=== PATIENT | female | born 1950 | race Caucasian/White ===

== ENCOUNTER 2020-03-05 23:36 | Emergency (ER) | payer OTHER, MEDICAID ==
[~2020-03-05] VITALS: Ht 152.4 cm; Wt 72.6 kg
[2020-03-05] MEDS ORDERED: methylPREDNISolone SOD SUCC 125 MG/2 ML VL ONE (23:40)
[2020-03-05] MEDS ORDERED: methylPREDNISolone SOD SUCC 125 MG/2 ML VL IV ONE (23:45)
[2020-03-05] MEDS ORDERED: IPRATROPIUM BROM 0.5 MG/2.5ML INH SOL NEB ONE (23:45)
[2020-03-05] MEDS ORDERED: ALBUTEROL SULF 2.5 MG/0.5ML(0.5%) NEB SOLN NEB ONE (23:45)
[2020-03-06 00:01] LABS: Basophils # (auto) 0.1 10 ^3/uL (0-0.2); Basophils % (auto) 1.1 % (0.0-2.0); Eosinophils # (auto) 0.4 10 ^3/uL (0-0.8); Eosinophils % (auto) 6.7 % (0.0-7.0); Hematocrit 41.6 % (36.0-46.0); Hemoglobin 13.8 g/dL (12.2-16.2); Lymphocytes # (auto) 2.3 10 ^3/uL (0.4-5.4); Lymphocytes % (auto) 35.2 % (10.0-50.0); Mean Corpuscular Hemoglobin 31.4 pg (28.0-32.0); Mean Corpuscular Hgb Conc. 33.2 g/dL (32.0-36.0); Mean Corpuscular Volume 94.5 fL (80.0-100.0); Monocytes # (auto) 0.6 10 ^3/uL (0-1.3); Monocytes % (auto) 9.4 % (0.0-12.0); Neutrophils # (auto) 3.1 10 ^3/uL (1.6-8.6); Neutrophils % (auto) 47.6 % (37.0-80.0); Nucleated Red Blood Cells % 0.1 %; Platelet Count (auto) 182 10^3/uL (140-450); Red Cell Distribution Width 13.6 % (11.8-14.3); White Blood Cell 6.5 10^3/uL (4.4-10.8)
[2020-03-06 00:18] LABS: Albumin 3.6 g/dL (3.4-5.0); Anion Gap 7 (5-15); BUN/Creatinine Ratio 13.3; Blood Urea Nitrogen 16 mg/dL (7-18); Calcium 8.9 mg/dL (8.5-10.1); Carbon Dioxide 27 mmol/L (21-32); Chloride 107 mmol/L (98-107); GFR African American 57 mL/min; GFR Non-African American 47 mL/min; Glucose 86 mg/dL (74-106); Magnesium 2.3 mg/dL (1.6-2.6); Potassium 4.4 mmol/L (3.5-5.1); Sodium 141 mmol/L (136-145)
[2020-03-06 00:19] LABS: Partial Thromboplastin Time 26.5 sec (23.64-32.05)
[2020-03-06 00:23] LABS: Alanine Aminotransferase 21 U/L (13-56); Alkaline Phosphatase 94 U/L (45-117); Aspartate Aminotransferase 20 U/L (15-37); Bilirubin, Total 0.3 mg/dL (0.2-1.0); Total Protein 7.3 g/dL (6.4-8.2)
[2020-03-06] MEDS ORDERED: SODIUM CHLORIDE 0.9% 1,000 ML IV ONE (03:30)
[2020-03-06] MEDS ORDERED: methylPREDNISolone SOD SUCC 125 MG/2 ML VL IV ONE (06:00)
[2020-03-06] MEDS ORDERED: ALBUTEROL SULF 2.5 MG/0.5ML(0.5%) NEB SOLN NEB ONE ×2 (06:45→08:30)
[2020-03-06] MEDS ORDERED: IPRATROPIUM BROM 0.5 MG/2.5ML INH SOL NEB ONE ×2 (06:45→08:30)
[2020-03-06 07:25] VITALS: BP 138/63
[2020-03-06] MEDS ORDERED: levoFLOXacin 500 MG TAB PO ONE (08:30)
== END 2020-03-06 09:00 | disposition home or self-care (01) ==
LOC: ER 23:38
DX: J45.901 Unspecified asthma with (acute) exacerbation (principal); E78.5 Hyperlipidemia, unspecified; Z20.828 Contact with and (suspected) exposure to other viral communicable diseases
CPT/HCPCS: 36415; 71045; 80053; 83735; 83880; 84484; 85025; 85379; 85610; 85730; 96374; 96376; 99285; J2930; J7030; J7644

== ENCOUNTER → 2020-03-23 | Emergency (ER) | payer OTHER, MEDICAID ==
[~2020-03-23] VITALS: Ht 152.4 cm; Wt 68.9 kg
[~2020-03-23] MED LIST: ALBUTEROL SULF 2.5 MG/0.5ML(0.5%) NEB SOLN NEB ONE; IPRATROPIUM BROM 0.5 MG/2.5ML INH SOL NEB ONE; methylPREDNISolone SOD SUCC 125 MG/2 ML VL IV ONE
[2020-03-23 21:16] VITALS: BP 186/97
[2020-03-23 22:32] LABS: Basophils # (auto) 0 10 ^3/uL (0-0.2); Basophils % (auto) 0.8 % (0.0-2.0); Eosinophils # (auto) 0.6 10 ^3/uL (0-0.8); Eosinophils % (auto) 10.6 % (0.0-7.0); Hematocrit 39.1 % (36.0-46.0); Mean Corpuscular Hemoglobin 31.9 pg (28.0-32.0); Mean Corpuscular Hgb Conc. 33.3 g/dL (32.0-36.0); Mean Corpuscular Volume 95.7 fL (80.0-100.0); Monocytes # (auto) 0.4 10 ^3/uL (0-1.3); Monocytes % (auto) 7.5 % (0.0-12.0); Neutrophils # (auto) 2.7 10 ^3/uL (1.6-8.6); Neutrophils % (auto) 46.1 % (37.0-80.0); Platelet Count (auto) 167 10^3/uL (140-450); Red Blood Cells 4.08 10^6/uL (4.0-5.20); Red Cell Distribution Width 13.7 % (11.8-14.3); White Blood Cell 5.8 10^3/uL (4.4-10.8)
[2020-03-23 22:48] LABS: INR 1.01 (0.9-1.15); Partial Thromboplastin Time 26.2 sec (23.64-32.05)
[2020-03-23 22:52] LABS: Albumin 3.7 g/dL (3.4-5.0); Anion Gap 3 (5-15); Blood Urea Nitrogen 23 mg/dL (7-18); Calcium 8.5 mg/dL (8.5-10.1); Carbon Dioxide 29 mmol/L (21-32); Chloride 111 mmol/L (98-107); Glucose 72 mg/dL (74-106); Magnesium 2.4 mg/dL (1.6-2.6); Potassium 3.8 mmol/L (3.5-5.1); Sodium 143 mmol/L (136-145)
[2020-03-23 22:54] LABS: Alanine Aminotransferase 25 U/L (13-56); Aspartate Aminotransferase 25 U/L (15-37); BUN/Creatinine Ratio 18.9; GFR African American 56 mL/min; GFR Non-African American 46 mL/min
[2020-03-23 22:59] LABS: Alkaline Phosphatase 85 U/L (45-117); Bilirubin, Total 0.4 mg/dL (0.2-1.0)
== END | disposition left against medical advice (07) ==
LOC: ER 21:12
DX: R06.02 Shortness of breath (principal); Z53.21 Procedure and treatment not carried out due to patient leaving prior to being seen by health care provider
CPT/HCPCS: 36415; 71045; 80053; 83735; 83880; 84484; 85025; 85379; 85610; 85730; 94640; 94644; J2930; J7644; 93005

== ENCOUNTER 2021-05-08 08:46 | Emergency (ER) | payer OTHER, MEDICAID ==
[~2021-05-08] VITALS: Ht 165.1 cm; Wt 77.1 kg
[2021-05-08 09:34] LABS: Hematocrit 45.3 % (36.0-46.0); Hemoglobin 15.2 g/dL (12.2-16.2); Mean Corpuscular Hemoglobin 31.3 pg (28.0-32.0); Mean Corpuscular Hgb Conc. 33.6 g/dL (32.0-36.0); Mean Corpuscular Volume 93.4 fL (80.0-100.0); Red Blood Cells 4.85 10^6/uL (4.0-5.20); Red Cell Distribution Width 13.1 % (11.8-14.3); White Blood Cell 17.7 10^3/uL (4.4-10.8)
[2021-05-08] MEDS ORDERED: SODIUM CHLORIDE 0.9% 1,000 ML IV ONE (09:45)
[2021-05-08] MEDS ORDERED: PROCHLORPERAZINE EDISYLATE 5 MG/ML 2ML VIAL IV ONE (09:45)
[2021-05-08 09:46] LABS: Basophils % (manual) 0 (0.0-2.0); Blast Cells 0; Metamyelocytes % 0; Myelocytes % 0; Promyelocytes % 0; Reactive Lymphocytes 0
[2021-05-08 09:55] LABS: Albumin 4.2 g/dL (3.4-5.0); Anion Gap 8 (5-15); Blood Urea Nitrogen 27 mg/dL (7-18); Calcium 8.9 mg/dL (8.5-10.1); Carbon Dioxide 22 mmol/L (21-32); Chloride 112 mmol/L (98-107); Glucose 168 mg/dL (74-106); Sodium 142 mmol/L (136-145)
[2021-05-08] MEDS ORDERED: SODIUM CHLORIDE 0.9% 1,000 ML IVB ONE (10:00)
[2021-05-08] MEDS ORDERED: MORPHINE SULFATE INJECTION 2 MG/2 ML SYRG IV ONE (10:00)
[2021-05-08 10:01] LABS: Alanine Aminotransferase 39 U/L (13-56); Alkaline Phosphatase 95 U/L (45-117); Aspartate Aminotransferase 29 U/L (15-37); BUN/Creatinine Ratio 20.3; Bilirubin, Total 0.8 mg/dL (0.2-1.0); GFR African American 51 mL/min; GFR Non-African American 42 mL/min; Total Protein 8.5 g/dL (6.4-8.2)
[2021-05-08 10:17] LABS: Magnesium 2.3 mg/dL (1.6-2.6)
[2021-05-08 10:41] LABS: Band Neutrophils % (manual) 8; Eosinophils % (manual) 1 (0-7); Lymphocytes % (manual) 3 (10.0-50.0); Monocytes % (manual) 6 (0-12)
[2021-05-08 13:52] LABS: Urine Bacteria FEW /hpf (None Seen); Urine Blood Negative /uL (Negative); Urine Mucus FEW (None Seen); Urine WBC 2 /hpf (0 - 5)
[2021-05-08] MEDS ORDERED: cefTRIAXone 1GM/50ML D5W 50 ML IV ONE (15:00)
[2021-05-08 16:05] VITALS: BP 129/62
== END 2021-05-08 16:44 | disposition home or self-care (01) ==
LOC: EDBD 08:46 → ER 08:46
DX: A05.9 Bacterial foodborne intoxication, unspecified (principal); N39.0 Urinary tract infection, site not specified; J18.9 Pneumonia, unspecified organism; E11.21 Type 2 diabetes mellitus with diabetic nephropathy; J45.909 Unspecified asthma, uncomplicated; E78.5 Hyperlipidemia, unspecified; Z88.5 Allergy status to narcotic agent; Z20.822 Contact with and (suspected) exposure to COVID-19; Z88.8 Allergy status to other drugs, medicaments and biological substances
CPT/HCPCS: 36415; 71045; 74176; 80053; 81001; 83690; 83735; 84443; 84484; 85007; 85027; 87426; 93005; 96361; 96365; 96375; 99285; J0696; J0780; J2270; J7030

== ENCOUNTER 2021-07-26 15:39 | Emergency (ER) | payer OTHER, MEDICAID ==
[~2021-07-26] VITALS: Ht 154.9 cm; Wt 77.1 kg
[2021-07-26] MEDS ORDERED: IPRATROPIUM BROM 0.5 MG/2.5ML INH SOL NEB ONE (16:15)
[2021-07-26] MEDS ORDERED: ALBUTEROL SULF 2.5 MG/0.5ML(0.5%) NEB SOLN NEB ONE (16:15)
[2021-07-26] MEDS ORDERED: methylPREDNISolone SOD SUCC 125 MG/2 ML VL IV ONE (16:15)
[2021-07-26 16:37] LABS: Basophils # (auto) 0.1 10 ^3/uL (0-0.2); Eosinophils # (auto) 0.8 10 ^3/uL (0-0.8); Eosinophils % (auto) 13.3 % (0.0-7.0); Hemoglobin 12.5 g/dL (12.2-16.2); Lymphocytes # (auto) 1.6 10 ^3/uL (0.4-5.4); Lymphocytes % (auto) 26.1 % (10.0-50.0); Mean Corpuscular Hemoglobin 31.5 pg (28.0-32.0); Mean Corpuscular Hgb Conc. 33.7 g/dL (32.0-36.0); Mean Corpuscular Volume 93.4 fL (80.0-100.0); Monocytes # (auto) 0.5 10 ^3/uL (0-1.3); Monocytes % (auto) 8.4 % (0.0-12.0); Neutrophils # (auto) 3.1 10 ^3/uL (1.6-8.6); Neutrophils % (auto) 51.2 % (37.0-80.0); Red Blood Cells 3.96 10^6/uL (4.0-5.20); Red Cell Distribution Width 13.8 % (11.8-14.3); White Blood Cell 6.1 10^3/uL (4.4-10.8)
[2021-07-26 16:51] LABS: Albumin 3.6 g/dL (3.4-5.0); Calcium 8.6 mg/dL (8.5-10.1); Potassium 4.1 mmol/L (3.5-5.1)
[2021-07-26 16:57] LABS: Bilirubin, Total 0.4 mg/dL (0.2-1.0); Total Protein 6.7 g/dL (6.4-8.2)
[2021-07-26 21:11] VITALS: BP 131/97
== END 2021-07-26 21:15 | disposition home or self-care (01) ==
LOC: ER 15:39
DX: J45.901 Unspecified asthma with (acute) exacerbation (principal); J45.909 Unspecified asthma, uncomplicated; Z20.822 Contact with and (suspected) exposure to COVID-19
CPT/HCPCS: 36415; 71045; 80053; 84484; 85025; 87426; 93005

== ENCOUNTER 2022-01-03 15:19 | Emergency (ER) | payer OTHER, MEDICAID ==
[~2022-01-03] VITALS: Ht 152.4 cm; Wt 77.1 kg
[2022-01-03] MEDS ORDERED: TERBUTALINE SULFATE 1 MG/ML 1ML VIAL SC ONE (15:30)
[2022-01-03] MEDS ORDERED: ALBUTEROL SULF 2.5 MG/0.5ML(0.5%) NEB SOLN NEB ONE (15:30)
[2022-01-03] MEDS ORDERED: methylPREDNISolone SOD SUCC 125 MG/2 ML VL IV ONE (15:30)
[2022-01-03] MEDS ORDERED: IPRATROPIUM BROM 0.5 MG/2.5ML INH SOL NEB ONE (15:30)
[2022-01-03 15:45] LABS: Basophils # (auto) 0 10 ^3/uL (0-0.2); Basophils % (auto) 0.7 % (0.0-2.0); Eosinophils # (auto) 0.8 10 ^3/uL (0-0.8); Eosinophils % (auto) 10.6 % (0.0-7.0); Hematocrit 37.4 % (36.0-46.0); Hemoglobin 12.9 g/dL (12.2-16.2); Lymphocytes # (auto) 1.8 10 ^3/uL (0.4-5.4); Lymphocytes % (auto) 23.6 % (10.0-50.0); Mean Corpuscular Hgb Conc. 34.4 g/dL (32.0-36.0); Monocytes # (auto) 0.6 10 ^3/uL (0-1.3); Monocytes % (auto) 7.8 % (0.0-12.0); Neutrophils # (auto) 4.3 10 ^3/uL (1.6-8.6); Neutrophils % (auto) 57.3 % (37.0-80.0); Nucleated Red Blood Cells % 0.1 %; Red Blood Cells 4.03 10^6/uL (4.0-5.20); Red Cell Distribution Width 13.7 % (11.8-14.3); White Blood Cell 7.5 10^3/uL (4.4-10.8)
[2022-01-03 16:02] LABS: Albumin 3.6 g/dL (3.4-5.0); Calcium 8.8 mg/dL (8.5-10.1); Potassium 3.8 mmol/L (3.5-5.1)
[2022-01-03] MEDS: MAGNESIUM SULFATE 1GM/100ML 100 ML IV SCH ×2 (16:02→16:55)
[2022-01-03 16:05] LABS: BUN/Creatinine Ratio 12.5; Bilirubin, Total 0.4 mg/dL (0.2-1.0); Total Protein 6.8 g/dL (6.4-8.2)
[2022-01-03 18:25] VITALS: BP 153/74
[2022-01-03] MEDS ORDERED: PRED20TA2 PO (18:54)
[2022-01-03] MEDS ORDERED: ALBUAER3 IN (18:54)
[2022-01-03] MEDS ORDERED: AZIT250T9 PO (18:54)
== END 2022-01-03 18:45 | disposition home or self-care (01) ==
LOC: ER 15:19
DX: J45.909 Unspecified asthma, uncomplicated (principal); E78.5 Hyperlipidemia, unspecified
CPT/HCPCS: 36415; 71045; 80053; 83880; 84484; 85025; 94640; 96365; 96366; 96372; 96375; 99284; J2930; J3105; J3475; J7644

== ENCOUNTER 2025-09-17 12:57 | Inpatient (IN) | payer MEDICARE, MEDICAID ==
[~2025-09-17] VITALS: Ht 152.4 cm; Wt 82.9 kg
[~2025-09-17 12:57] MED LIST changes: +ALBUAER3 IN; -ALBUTEROL SULF 2.5 MG/0.5ML(0.5%) NEB SOLN NEB ONE; +AZIT-43 PO; -IPRATROPIUM BROM 0.5 MG/2.5ML INH SOL NEB ONE; +PRED20TA2 PO; -methylPREDNISolone SOD SUCC 125 MG/2 ML VL IV ONE
--- NOTE | 2025-09-17 13:26 | ED.PDOC ---
SOB-HPI HPI Comments This is a 74 year old female presenting to the ED with chief complaint of SOB. Patient reports that she has been experiencing SOB for the past few days. Patient relays that she was recently placed on Z-Andrea on 09/12, but after finishing it, she has had no relief. Patient denies any sick contacts, chest pain, fever, chills, or N/V. 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 all DISTRI[employer] SUPERVISOR Hx Family History Family History: Reviewed,noncontributory to illness Social History Smoker: Non-Smoker Alcohol: Denies ETOH Use Drugs: Denies Drug Use Lives In: Home Constitutional: denies: chills, diaphoresis, fatigue, fever, malaise, sweats, weakness, others EENTM: denies: blurred vision, double vision, ear bleeding, ear discharge, ear drainage, ear pain, ear ringing, eye pain, eye redness, hearing loss, mouth pain, mouth swelling, nasal discharge, nose bleeding, nose congestion, nose pain, photophobia, tearing, throat pain, throat swelling, voice changes, others Respiratory: reports: shortness of breath; denies: cough, hemoptysis, orthopnea, SOB at rest, SOB with excertion, stridor, wheezing, others Cardiovascular: denies: chest pain, dizzy spells, diaphoresis, Dyspnea on exertion, edema, irregular heart beat, left arm pain, lightheadedness, palpitations, PND, syncope, others Gastrointestinal: denies: abdomen distended, abdominal pain, blood streaked bowels, constipated, diarrhea, dysphagia, difficulty swallowing, hematemesis, melena, nausea, poor appetite, poor fluid intake, rectal bleeding, rectal pain, vomiting, others Genitourinary: denies: abnormal vagina bleeding, burning, dyspareunia, dysuria, flank pain, frequency, hematuria, incontinence, pain, , vagina discharge, urgency, others Neurological: denies: dizziness, fainting, headache, left sided numbness, left sided weakness, numbness, paresthesia, pre-existing deficit, right sided nu mbness, right sided weakness, seizure, speech problems, tingling, tremors, weakness, others Musculoskeletal: denies: back pain, gout, joint pain, joint swelling, muscle pain, muscle stiffness, neck pain, others Integumetry: denies: bruises, change in color, change in hair/nails, dryness, laceration, lesions, lumps, rash, wounds, others Allergic/Immunocompromised: denies: Difficulty Healing, Frequent Infections, Hives, Itching, others Hematologic/Lymphatic: denies: anemia, blood clots, easy bleeding, easy bruising, swollen glands, others Endocrine: denies: excessive hunger, excessive sweating, excessive thirst, excessive urination, flushing, intolerance to cold, intolerance to heat, unexplained weight gain, unexplained weight loss, others Psychiatric: denies: anxiety, bipolar disorder, depression, hopeless, panic disorder, schizophrenia, sleepless, suicidal, others All Other Systems: Reviewed and Negative Physical Exam General Appearance: Moderate Distress, Normal HEENT: Normal ENT Inspection, Pharynx Normal, TMs Normal Neck: Full Range of Motion, Non-Tender, Normal, Normal Inspection Respiratory: Chest Non-Tender, Lungs Clear, No Accessory Muscle Use, No Respiratory Distress, Normal Breath Sounds Cardiovascular: No Edema, No JVD, No Murmur, No Gallop, Normal Peripheral Pulses, Regular Rate/Rhythm Breast Exam: Deferred Gastrointestinal: No Organomegaly, Non Tender, No Pulsatile Mass, Normal Bowel Sounds, Soft Genitalia: Deferred Pelvic: Deferred Rectal: Deferred Extremities: No calf tenderness, Normal capillary refill, Normal inspection, Normal range of motion, Non-tender, No pedal edema Musculoskeletal : Apperance: Normal Neurologic: Alert, geographic area intelligence officer II-XII nml as Tested, No Motor Deficits, Normal Affect, Normal Mood, No Sensory Deficits Cerebellar Function: Normal Reflexes: Normal Skin: Dry, Normal Color, Warm Peripheral Pulses: 3+ Radial (R), 3+ Radial (L) Lymphatic: No Adenopathy EKG EKG : Pulse Rate (adult): 89 Cardiac Rhythm: NSR Was a procedure done? Was a procedure done?: No Differential Dx Differential Diagnosis: Anxiety, Asthma, Bronchitis X-Ray, Labs, Meds, VS Vital Signs Date Time Temp Pulse Resp B/P (MAP) Pulse Ox O2 Delivery O2 Flow Rate FiO2 09/17/25 13:26 89 09/17/25 13:15 89 09/17/25 13:04 24 97 Room Air* 0 21 09/17/25 12:59 97.9 97 24 130/95 97 97.9 Lab Test 09/17/25 13:22 Range/Units White Blood Count 8.5 4.4-10.8 10^3/uL Red Blood Count 4.30 4.0-5.20 10^6/uL Hemoglobin 13.7 12.2-16.2 g/dL Hematocrit 40.7 36.0-46.0 % Mean Corpuscular Volume 94.8 80.0-100.0 fL Mean Corpuscular Hemoglobin 32.0 28.0-32.0 pg Mean Corpuscular Hemoglobin Concent 33.7 32.0-36.0 g/dL Red Cell Distribution Width 13.0 11.8-14.3 % Platelet Count 198 140-450 10^3/uL Mean Platelet Volume 8.7 6.9-10.8 fL Neutrophils (%) (Auto) 59.2 37.0-80.0 % Lymphocytes (%) (Auto) 28.8 10.0-50.0 % Monocytes (%) (Auto) 9.2 0.0-12.0 % Eosinophils (%) (Auto) 2.6 0.0-7.0 % Basophils (%) (Auto) 0.2 0.0-2.0 % Neutrophils # (Auto) 5.0 1.6-8.6 10 ^3/uL Lymphocytes # (Auto) 2.4 0.4-5.4 10 ^3/uL Monocytes # (Auto) 0.8 0-1.3 10 ^3/uL Eosinophils # (Auto) 0.2 0-0.8 10 ^3/uL Basophils # (Auto) 0 0-0.2 10 ^3/uL Nucleated Red Blood Cells 0.1 % Sodium Level 144 136-145 mmol/L Potassium Level 3.4 L 3.5-5.1 mmol/L Chloride Level 109 H 98-107 mmol/L Carbon Dioxide Level 24 20-31 mmol/L Anion Gap 11 5-15 Blood Urea Nitrogen 13 9-23 mg/dL Creatinine 1.21 H 0.550-1.02 mg/dL Glomerular Filtration Rate Calc 47 >90 mL/min BUN/Creatinine Ratio 10.7 10.0-20.0 Serum Glucose 74 74-106 mg/dL Lactic Acid Level Pending Calcium Level 9.0 8.7-10.4 mg/dL Total Bilirubin 0.7 0.2-1.0 mg/dL Aspartate Amino Transferase (AST) 17 13-40 U/L Alanine Aminotransferase (ALT) 22 7-40 U/L Alkaline Phosphatase 59 46-116 U/L Troponin I High Sensitivity 9 </=34 ng/L Total Protein 6.7 5.7-8.2 g/dL Albumin 4.4 3.2-4.8 g/dL Patient alert. Came in because of shortness a breath. Vitals stable. Answering questions. Possible pneumonia. Possible sepsis. Establish intravenous access. Was given Rocephin. Was given azithromycin. Explained to the patient. Continue monitoring. Time of 1ST Reevaluation: 14:24 Reevaluation 1ST: Unchanged Patient Education/Counseling: Diagnosis, Treatment Family Education/Counseling: No Family Present SEPSIS Sepsis Screen Date sepsis recognized/suspect: Sep 17, 2025 Time Sepsis recognized/suspect: 1303 Recent Procedure: No On Antibiotic Therapy: Yes Respiratory Rate >20: Yes Heart Rate >90: Yes Temp<36 C (96.8 F) or >38.3 C: No SBP <90 or MAP <65 mmHG: No New Acute Mental Status Change: No Is the patient on CPAP, BIPAP,: No Physician Orders Urinalysis (09/17/25 13:05) Chest Two Views Routine (09/17/25 13:05) Electrocardigram (09/17/25 13:05) Blood Culture (09/17/25 13:05) Lactic Acid W/ Reflex Order (09/17/25 13:05) Azithromycin 500mg/250ml (Zithromax 500m (09/17/25 13:30) Sodium Chloride 0.9% (09/17/25 13:30) Sodium Chloride 0.9% (09/17/25 13:30) Vital Signs Date Time Temp Pulse Resp B/P (MAP) Pulse Ox O2 Delivery O2 Flow Rate FiO2 09/17/25 13:26 89 09/17/25 13:15 89 09/17/25 13:04 24 97 Room Air* 0 21 09/17/25 12:59 97.9 97 24 130/95 97 97.9 Laboratory Tests Test 09/17/25 13:22 Lactic Acid Level Pending White Blood Count 8.5 10^3/uL (4.4-10.8) Departure 1 Departure Time of Disposition: 14:10 Impression: Primary Impression: Left lower lobe pneumonia Qualified Codes: J18.9 - Pneumonia, unspecified organism Disposition: ADMITTED INPATIENT Admit to: Med Surg Condition: Guarded Critical Care Note Critical Care Time?: No Stability Stability form required: No Heart Score Heart Score: Heart Score Response (Comments) Value History N/A 0 EKG N/A 0 Age N/A 0 Risk Factors N/A 0 Troponin N/A 0 Total 0 I personally scribed for SUSAN SINCLAIR MD ([email or web address]) on 09/17/25 at 13:26. Electronically submitted by Nick Anderson ([email or web address]). SUSAN SINCLAIR MD Sep 17, 2025 13:26
[2025-09-17] MEDS: AZITHROMYCIN 500MG/250ML 250 ML IV ONE (13:30)
[2025-09-17 13:55] LABS: Hematocrit 40.7 % (36.0-46.0); Hemoglobin 13.7 g/dL (12.2-16.2); Mean Corpuscular Hemoglobin 32.0 pg (28.0-32.0); Mean Corpuscular Volume 94.8 fL (80.0-100.0); Nucleated Red Blood Cells % 0.1 %
[2025-09-17 14:06] LABS: Alanine Aminotransferase 22 U/L (7-40); Albumin 4.4 g/dL (3.2-4.8); Alkaline Phosphatase 59 U/L (46-116); Anion Gap 11 (5-15); BUN/Creatinine Ratio 10.7 (10.0-20.0); Bilirubin, Total 0.7 mg/dL (0.2-1.0); Blood Urea Nitrogen 13 mg/dL (9-23); Calcium 9.0 mg/dL (8.7-10.4); Carbon Dioxide 24 mmol/L (20-31); Chloride 109 mmol/L (98-107); Glucose 74 mg/dL (74-106); Potassium 3.4 mmol/L (3.5-5.1); Sodium 144 mmol/L (136-145); Total Protein 6.7 g/dL (5.7-8.2)
[2025-09-17 14:14] LABS: Lactic Acid w/Reflex 2.2 mmol/L (0.4-2.0)
--- NOTE | 2025-09-17 14:22 | DVH ---
CHEST RADIOGRAPH INDICATION: sob TECHNIQUE: Frontal and lateral view of the chest was obtained COMPARISON: CT CHEST WO on DOS: 07/07/25, XR CHEST 2 VIEW on DOS: 06/23/25, CHEST PORTABLE on DOS: 01/03/22, CXRP on DOS: 01/03/22, CHEST PORTABLE on DOS: 07/26/21 FINDINGS: Lines and Tubes: None Lungs: Right perihilar opacity may reflect atelectasis or mild pneumonia. Pleura: No effusion. No pneumothorax. Cardiomediastinal contours: Unremarkable Bones: Unremarkable IMPRESSION: 1. Right perihilar opacity may reflect atelectasis or mild pneumonia.
[2025-09-17] MEDS: SODIUM CHLORIDE 0.9% 1,000 ML IV ONE ×2 (14:30)
[2025-09-17] MEDS: methylPREDNISolone SOD SUCC 125 MG/2 ML VL IV ONE (15:45)
[2025-09-17 15:59] VITALS: RESP 26
[2025-09-17] MEDS: IPRATROPIUM BROM 0.5 MG/2.5ML INH SOL NEB ONE (16:49)
[2025-09-17 19:16] LABS: Urine Protein, UAD Negative (Negative)
[2025-09-17] MEDS ORDERED: ONDANSETRON HCL 4 MG/2 ML VIAL IV PRN (23:30)
[2025-09-18] VITALS (17 sets, daily range): BP systolic 127–141; BP diastolic 57–76; PULSE 66–84; RESP 14–20; TEMP 96.7–98.2; O2SAT 82–100
[2025-09-18] MEDS: SODIUM CHLORIDE 0.9% 1,000 ML IV ONE
--- NOTE | 2025-09-18 00:22 | DVHHPRES ---
History of Present Illness Resident Creating Document: MICHELLE TOMLINSON RESIDENT History of Present Illness Patient is a 74-year-old female with past medical history of asthma, hyperlipidemia, hypertension, depression /anxiety who presented to the ED with chief complaint of shortness of breath and cough associated with sputum since 2 weeks. Patient states that she went to urgent care on 09/12 and was discharged with Z-Andrea which she finished and reported no improvement in symptoms. Patient also states she has had watery diarrhea since 1 week. Patient denies any sick contacts, Eating outside, chest pain, palpitations, fever, chills, nausea, vomiting, abdominal pain. PMHx: asthma, hyperlipidemia, hypertension, depression /anxiety PSHx: Hysterectomy, bilateral tubal ligation, bilateral shoulder surgery Family history: reviewed, noncontributory Social history: denies smoking, drinking, drug use Home medication: trazodone, albuterol, famotidine, montelukast, atorvastatin, bupropion and citalopram Allergic history: codeine, iodine, oxycodone Patient seen in the [facility]. Patient complains of shortness of breath, cough with greenish sputum and 7 episodes of diarrhea today. Patient denies any chest pain, nausea, vomiting, abdominal pain, fever, chills. Review of Systems Constitutional: No: Fever, Chills, Sweats, Weakness, Malaise, Other Eyes: No: Pain, Vision change, Conjunctivae inflammation, Eyelid inflammation, Other, Redness ENT: No: Ear pain, Ear discharge, Nose pain, Nose discharge, Nose congestion, Mouth pain, Mouth swelling, Throat pain, Throat swelling, Other Respiratory: Cough, Dry, Shortness of breath, SOB with excertion, Wheezing, Sp utum Cardiovascular: No: Chest Pain, Palpitations, Orthopnea, Paroxysmal Noc. Dyspnea, Edema, Lt Headedness, Other Gastrointestinal: No: Nausea, Vomiting, Abdominal Pain, Diarrhea, Constipation, Melena, Hematochezia, Other Genitourinary: No Dysuria, No Frequency, No Incontinence, No Hematuria, No Retention, No Other Musculoskeletal: No: other, neck pain, shoulder pain, arm pain, back pain, hand pain, leg pain, foot pain Skin: No: Rash, Lesions, Jaundice, Bruising, Other Neurological: Other (Tremors); No: Weakness, Numbness, Incoordination, Change in speech, Confusion, Seizures Allergies: Coded Allergies: Codeine (Verified Allergy, Unknown, 03/05/20) Iodine (Verified Allergy, Unknown, 03/05/20) Oxycodone (Verified Allergy, Unknown, 03/05/20) Medications Current Medications Medications Dose Ordered Sig/Wanda Route Start Time Stop Time Status Last Admin Dose Admin Ondansetron HCl 4 mg Q4HP PRN IV 09/17/25 23:30 Enoxaparin Sodium 40 mg DAILY SC 09/18/25 10:00 Acetaminophen 650 mg Q6HR PO 09/18/25 00:00 Exam Vital Signs Vital Signs Date Time Temp Pulse Resp B/P (MAP) Pulse Ox O2 Delivery O2 Flow Rate FiO2 09/17/25 22:13 98.1 84 20 127/76 (93) 96 98.1 09/17/25 16:49 Room Air* 0 21 Exam General: Patient alert and oriented in person, place and time. Patient following commands. HEENT: Normocephalic, atraumatic, moist mucous membranes Respiratory/pulmonary: bilateral expiratory wheezes heard on auscultation Cardiovascular: Normal heart sounds S1 and S2 with no associated murmurs Abdomen: Abdomen nondistended, there is no pain to palpation in any of the abdominal quadrants, no palpable masses. Extremities: bilateral nonpitting edema Peripheral Pulses: 3+ Radial (R). 3+ Radial (L). 3+ Dorsalis pedis (R). 3+ Dorsalis pedis(L) Skin: No rashes or pruritus, there is no sacral edema present at this time. Neurological: Intact cranial nerves with no focal neurologic deficits Labs/Xrays Labs Test 09/17/25 16:45 09/17/25 14:35 09/17/25 13:22 Range/Units Lactic Acid Level 3.3 *H 0.4-2.0 mmol/L Urine Color Light-yellow Yellow Urine Clarity Clear Clear Urine pH 6.0 5.0-9.0 Urine Specific Wallace 1.020 1.001-1.035 Urine Protein Negative Negative Urine Ketones Negative Negative Urine Blood Negative Negative /uL Urine Nitrite Negative Negative Urine Bilirubin Negative Negative Urine Urobilinogen Normal Negative mg/dL Urine Leukocyte Esterase 3+ Negative /uL Urine RBC 4 0 - 4 /hpf Urine Microscopic WBC 5 0-5 /HPF Urine Squamous Epithelial Cells Few <5 /hpf Urine Bacteria Few H None Seen /hpf Urine Mucus Few None Seen Urine Glucose Normal Normal mg/dL White Blood Count 8.5 4.4-10.8 10^3/uL Red Blood Count 4.30 4.0-5.20 10^6/uL Hemoglobin 13.7 12.2-16.2 g/dL Hematocrit 40.7 36.0-46.0 % Mean Corpuscular Volume 94.8 80.0-100.0 fL Mean Corpuscular Hemoglobin 32.0 28.0-32.0 pg Mean Corpuscular Hemoglobin Concent 33.7 32.0-36.0 g/dL Red Cell Distribution Width 13.0 11.8-14.3 % Platelet Count 198 140-450 10^3/uL Mean Platelet Volume 8.7 6.9-10.8 fL Neutrophils (%) (Auto) 59.2 37.0-80.0 % Lymphocytes (%) (Auto) 28.8 10.0-50.0 % Monocytes (%) (Auto) 9.2 0.0-12.0 % Eosinophils (%) (Auto) 2.6 0.0-7.0 % Basophils (%) (Auto) 0.2 0.0-2.0 % Neutrophils # (Auto) 5.0 1.6-8.6 10 ^3/uL Lymphocytes # (Auto) 2.4 0.4-5.4 10 ^3/uL Monocytes # (Auto) 0.8 0-1.3 10 ^3/uL Eosinophils # (Auto) 0.2 0-0.8 10 ^3/uL Basophils # (Auto) 0 0-0.2 10 ^3/uL Nucleated Red Blood Cells 0.1 % Sodium Level 144 136-145 mmol/L Potassium Level 3.4 L 3.5-5.1 mmol/L Chloride Level 109 H 98-107 mmol/L Carbon Dioxide Level 24 20-31 mmol/L Anion Gap 11 5-15 Blood Urea Nitrogen 13 9-23 mg/dL Creatinine 1.21 H 0.550-1.02 mg/dL Glomerular Filtration Rate Calc 47 >90 mL/min BUN/Creatinine Ratio 10.7 10.0-20.0 Serum Glucose 74 74-106 mg/dL Calcium Level 9.0 8.7-10.4 mg/dL Total Bilirubin 0.7 0.2-1.0 mg/dL Aspartate Amino Transferase (AST) 17 13-40 U/L Alanine Aminotransferase (ALT) 22 7-40 U/L Alkaline Phosphatase 59 46-116 U/L Troponin I High Sensitivity 9 </=34 ng/L Total Protein 6.7 5.7-8.2 g/dL Albumin 4.4 3.2-4.8 g/dL SEPSIS Sepsis Screen Date sepsis recognized/suspect: Sep 17, 2025 Time Sepsis recognized/suspect: 1600 Recent Procedure: No On Antibiotic Therapy: Yes Respiratory Rate >20: Yes Heart Rate >90: No Temp<36 C (96.8 F) or >38.3 C: No SBP <90 or MAP <65 mmHG: No New Acute Mental Status Change: No Is the patient on CPAP, BIPAP,: No Physician Orders Admit (09/17/25 23:23) Code Status (09/17/25 23:23) 2 Gm Sodium Diet (09/18/25 Breakfast) Ondansetron Hcl (Zofran) (09/17/25 23:30) Enoxaparin Sodium (Lovenox) (09/18/25 10:00) Complete Blood Count (09/18/25 04:00) Comprehensive Metabolic Panel (09/18/25 04:00) Condition: Critical (09/17/25 23:23) Acetaminophen Tablet (Tylenol Tablet) (09/18/25 00:00) Bedrest With Bathroom Privileg (09/17/25 23:23) Oxygen By Nasal Cannula (09/17/25 23:23) Stat Ekg For Chest Pain (09/17/25 23:23) Notify Md Of Changes From Base (09/17/25 23:23) Arranger Assembler For 24 Hours (09/17/25 23:23) Emergency Dysrhythmia Protocol (09/17/25 23:23) Rhythm Strips Once Every Shift (09/17/25 23:23) Stool Wbc (09/17/25 23:57) Ova & Parasite Exam (09/17/25 23:57) Clostridium Difficile Toxin (09/17/25 23:57) Covid19 Antigen Lisha (09/17/25 ) Rapid Influenza A&B (09/17/25 23:57) Mrsa Screen (09/17/25 23:57) Stool Bacterial Culture (09/17/25 23:57) Magnesium (09/17/25 23:57) Albuterol Medneb (Ventolin Medneb) (09/18/25 06:00) Ipratropium Medneb (Atrovent Medneb) (09/18/25 06:00) Famotidine Tablet (Pepcid Tablet) (09/18/25 10:00) Sodium Chloride 0.9% (09/18/25 00:00) Magnesium Sulfate 1gm/100ml (09/18/25 00:00) Metronidazole 500mg/100ml (Flagyl 500mg/ (09/18/25 06:00) Doxycycline Tablet (Vibramycin Tablet) (09/18/25 10:00) Ceftriaxone 2gm/50ml (Rocephin 2gm/50ml) (09/18/25 13:00) Vital Signs Date Time Temp Pulse Resp B/P (MAP) Pulse Ox O2 Delivery O2 Flow Rate FiO2 09/17/25 22:13 98.1 84 20 127/76 (93) 96 98.1 09/17/25 18:20 98.2 88 20 151/79 (103) 95 98.2 09/17/25 16:49 20 96 Room Air* 0 21 Laboratory Tests Test 09/17/25 13:22 09/17/25 16:45 Lactic Acid Level 2.2 mmol/L (0.4-2.0) *H 3.3 mmol/L (0.4-2.0) *H White Blood Count 8.5 10^3/uL (4.4-10.8) Medications Medications Dose Ordered Sig/Wanda Route Start Time Stop Time Status Last Admin Dose Admin Ceftriaxone Sodium 50 ml @ 100 mls/hr ONCE ONCE IV 09/17/25 13:30 09/17/25 13:59 DC 09/17/25 15:45 100 MLS/HR Ipratropium Weiser 0.5 mg ONCE ONCE NEB 09/17/25 16:00 09/17/25 16:01 DC 09/17/25 16:49 0.5 MG Methylprednisolone Sodium Succinate 125 mg ONCE ONCE IV 09/17/25 13:30 09/17/25 13:31 DC 09/17/25 15:45 125 MG Sodium Chloride 1,000 ml @ 150 mls/hr Q6H40M ONCE IV 09/17/25 13:30 09/17/25 20:09 DC 09/17/25 14:30 150 MLS/HR Sodium Chloride 1,000 ml @ 1,000 mls/hr Q1H ONCE IV 09/17/25 13:30 09/17/25 14:29 DC 09/17/25 14:30 1,000 MLS/HR Assessment/Plan Assessment/Plan Asthma exacerbation Possible pneumonia Gram-positive/Gram-negative Chest x-ray showed Right perihilar opacity may reflect atelectasis or mild pneumonia. - IV fluids - albuterol, ipratropium Med neb - magnesium - doxycycline, ceftriaxone - prednisone 40 - check MRSA - check COVID, flu Infectious gastroenteritis likely bacterial /viral - IV fluids - IV ceftriaxone - famotidine - stool culture, ova parasite, WBC - rule out C diff Lactic acidosis - IV fluids - monitor labs Hypokalemia - replaced Obesity BMI 35.8 - patient counseled on exercise, diet, still modification for 18 minutes PPI prophylaxis: Pepcid DVT prophylaxis: Lovenox Goals of care addressed with the patient for more than 27 minutes: Full code status Case discussed with Dr. Serrato , patient and nurse Plan discussed with: Patient My Orders Orders - MICHELLE TOMLINSON RESIDENT Procedure Category Date Status Time Admit ADMIT 09/17/25 Transmitted 23:23 Code Status CODE 09/17/25 Transmitted 23:23 2 Gm Sodium Diet DIET 09/18/25 Transmitted Breakfast Ondansetron Hcl PHA 09/17/25 In Process (Zofran) 23:30 Enoxaparin Sodium PHA 09/18/25 In Process (Lovenox) 10:00 Complete Blood Count LAB 09/18/25 Logged 04:00 Comprehensive LAB 09/18/25 Logged Metabolic Panel 04:00 Condition: Critical JENIFFER 09/17/25 In Process 23:23 Acetaminophen Tablet PHA 09/18/25 In Process (Tylenol Tablet) 00:00 Bedrest With Bathroom JENIFFER 09/17/25 In Process Privileg 23:23 Oxygen By Nasal RT 09/17/25 Transmitted Cannula 23:23 Stat Ekg For Chest JENIFFER 09/17/25 In Process Pain 23:23 Notify Md Of Changes JENIFFER 09/17/25 In Process From Base 23:23 Arranger Assembler For JENIFFER 09/17/25 In Process 24 Hours 23:23 Emergency Dysrhythmia JENIFFER 09/17/25 In Process Protocol 23:23 Rhythm Strips Once JENIFFER 09/17/25 In Process Every Shift 23:23 Stool Wbc LAB 09/17/25 Logged 23:57 Ova & Parasite Exam MARCIO 09/17/25 Logged 23:57 Clostridium Difficile MARCIO 09/17/25 Logged Toxin 23:57 Covid19 Antigen Lisha LAB 09/17/25 Logged Rapid Influenza A&B LAB 09/17/25 Logged 23:57 Mrsa Screen MARCIO 09/17/25 Logged 23:57 Stool Bacterial MARCIO 09/17/25 Logged Culture 23:57 Magnesium LAB 09/17/25 In Process 23:57 Albuterol Medneb PHA 09/18/25 In Process (Ventolin Medneb) 06:00 Ipratropium Medneb PHA 09/18/25 In Process (Atrovent Medneb) 06:00 Famotidine Tablet PHA 09/18/25 In Process (Pepcid Tablet) 10:00 Sodium Chloride 0.9% PHA 09/18/25 In Process 00:00 Magnesium Sulfate PHA 09/18/25 In Process 1gm/100ml 00:00 Metronidazole PHA 09/18/25 In Process 500mg/100ml (Flagyl 06:00 Doxycycline Tablet PHA 09/18/25 In Process (Vibramycin Tablet) 10:00 Ceftriaxone 2gm/50ml PHA 09/18/25 In Process (Rocephin 2gm/50ml) 13:00 Visit Coding STANDARD RES Billing Provider: ANG SERRATO MD Date of Service if different f: Sep 17, 2025 Common Visit Codes: 97382-[id number] INP/OBS CARE (HIGH) Secondary Visit Codes: [id number] CARE PLAN 30 MINUTES MICHELLE TOMLINSON RESIDENT Sep 18, 2025 00:22
[2025-09-18] MEDS: ACETAMINOPHEN 325 MG TAB PO SCH (03:08)
[2025-09-18] MEDS: POTASSIUM EFFERVESENT TAB 25 MEQ PO ONE (03:09)
[2025-09-18 06:28] LABS: Hematocrit 38.5 % (36.0-46.0); Hemoglobin 13.0 g/dL (12.2-16.2); Mean Corpuscular Hemoglobin 32.1 pg (28.0-32.0); Mean Corpuscular Volume 95.3 fL (80.0-100.0); Nucleated Red Blood Cells % 0.0 %
[2025-09-18 06:47] LABS: Alanine Aminotransferase 23 U/L (7-40); Albumin 4.5 g/dL (3.2-4.8); Alkaline Phosphatase 53 U/L (46-116); Anion Gap 9 (5-15); BUN/Creatinine Ratio 13.3 (10.0-20.0); Blood Urea Nitrogen 17 mg/dL (9-23); Carbon Dioxide 24 mmol/L (20-31); Potassium 4.6 mmol/L (3.5-5.1); Sodium 141 mmol/L (136-145); Total Protein 6.8 g/dL (5.7-8.2)
[2025-09-18 06:48] LABS: Bilirubin, Total 0.6 mg/dL (0.2-1.0)
[2025-09-18 06:49] LABS: Calcium 8.5 mg/dL (8.7-10.4); Chloride 108 mmol/L (98-107); Glucose 140 mg/dL (74-106)
[2025-09-18] MEDS: ALBUTEROL SULF 2.5 MG/0.5ML(0.5%) NEB SOLN NEB SCH (07:13)
[2025-09-18] MEDS: IPRATROPIUM BROM 0.5 MG/2.5ML INH SOL NEB SCH (07:13)
[2025-09-18] MEDS: MAGNESIUM SULFATE 1GM/100ML 100 ML IV ONE (08:05)
[2025-09-18] MEDS: DOXYCYCLINE 100 MG TAB/CAP PO SCH (11:22)
[2025-09-18] MEDS: FAMOTIDINE 20 MG TAB PO SCH (11:22)
[2025-09-18] MEDS: ENOXAPARIN SOD 40 MG/0.4 ML SYRINGE SC SCH (11:24)
[2025-09-18 12:09] LABS: COVID19 ANTIGEN SOFIA FIA NEGATIVE (NEGATIVE)
[2025-09-18] MEDS: predniSONE 20 MG TAB PO SCH (12:57)
--- NOTE | 2025-09-18 13:13 | DVHPNRES ---
Progress Note Date Seen: Sep 18, 2025 Resident Creating Document: LAYA BEARDEN RESIDENT Medical Necessity Reason Pt with a Central, PICC or Fol: No Subjective Review of Systems Randa Rick, 74-year-old female with past medical history of asthma, hypertension, depression, anxiety, hyperlipidemia, CKD stage 3, migraines presented to the ER with the complaints of shortness of breaths for 2 weeks, she reports the shortness of breath increased on exertion, relieved by breathing treatments. She also reports waking up in the middle of the night due to shortness of breaths. The patient has cough since last 2 weeks, productive, white initially and now yellow in color as per patient. She also reports having diarrhea since last 1 week, not mixed with blood. She recently went to urgent care, where she was given azithromycin treatment. She completed the dosage. However she did not see any improvement in her cough and shortness of breaths. She denies any chest pain, fever, sick contacts or recent travel history. Past medical history: As above Past surgical history: Hysterectomy, bilateral tubal ligation, bilateral shoulder surgery Allergies: Codeine, iodine oxycodone Home medications: Albuterol, famotidine, montelukast, atorvastatin, bupropion, citalopram Smoking, alcohol, drugs: Never Daughter's contact: ANG [phone] The patient was seen and examined at bedside, overnight events were reviewed. Patient still reports having shortness of breaths and cough. She was on room air, no other new complaints reported. Spoke to the daughter and updated her. All questions were answered. Patient reports: Feels better Objective vital signs Vital Sign Date Time Temp Pulse Resp B/P (MAP) Pulse Ox O2 Delivery O2 Flow Rate FiO2 09/18/25 10:35 96.7 82 20 130/58 (82) 98 96.7 09/18/25 10:22 Room Air* 0 21 medications Current Medications Medications Dose Ordered Sig/Wanda Route Start Time Stop Time Status Last Admin Dose Admin Ondansetron HCl 4 mg Q4HP PRN IV 09/17/25 23:30 Enoxaparin Sodium 40 mg DAILY SC 09/18/25 10:00 09/18/25 11:24 40 MG Acetaminophen 650 mg Q6HR PO 09/18/25 00:00 09/18/25 12:59 650 MG Albuterol 2.5 mg Q4HWA [facility] 09/18/25 06:00 09/18/25 10:21 2.5 MG Ipratropium [place] 0.5 mg Q4HWA [facility] 09/18/25 06:00 09/18/25 10:21 0.5 MG Famotidine 20 mg DAILY PO 09/18/25 10:00 09/18/25 11:22 20 MG Ceftriaxone Sodium/Dextrose 50 ml @ 50 mls/hr Q24H IV 09/18/25 13:00 Doxycycline Monohydrate 100 mg Q12HR PO 09/18/25 10:00 09/18/25 11:22 100 MG Prednisone 40 mg DAILY PO 09/18/25 10:00 09/18/25 12:57 40 MG Examination Pt is lying on bed General Appearance: Alert, Oriented X3, Cooperative, Mild distress HEENT: Atraumatic, Mucous membranes moist/pink Respiratory: Bilateral wheezing present, Normal air movement, No added sounds Cardiovascular: Regular rate, Normal S1, Normal S2, No murmurs Abdominal/ : Active bowel sounds, Soft, no distention, no tenderness Extremities: No edema, Normal pulses, No tenderness/swelling Skin: No Significant rash, except past surgical scars Neuro: Normal speech, sensorimotor deficits none Psych/Mental Status: Mental status NL, Mood NL Nurse was there as neck skewer during examination laboratory and microbiology Laboratory Tests 09/18/25 06:00 Test 09/18/25 06:00 Range/Units Serum Glucose 140 H 74-106 mg/dL Labs and/or images reviewed: Labs reviewed by me, Image(s) reviewed by me (RN) Problem List/Assessment/Plan Problem List/Assessment/Plan Acute exacerbation of bronchial asthma Bronchitis Pneumonia due to Gram-positive or Gram-negative organism Sepsis on admission, probably due to pneumonia or UTI -albuterol and ipratropium -ceftriaxone plus doxycycline -prednisone Acute complicated UTI -IV ceftriaxone History of CKD stage 3 GI prophylaxis: Famotidine DVT prophylaxis: Lovenox Diet: Low-sodium Goals of care discussed with the patient for more than 27 minutes: Full code status Case discussed with Dr. Perkins , patient and RN Plan discussed with: Patient, Other Visit Coding STANDARD RES Billing Provider: LAYA BEARDEN Date of Service if different f: Sep 18, 2025 LAYA BEARDEN Sep 18, 2025 13:13
[2025-09-19] VITALS (15 sets, daily range): BP systolic 132–152; BP diastolic 58–77; PULSE 69–86; RESP 16–20; TEMP 97.9–98.4; O2SAT 94–100
[2025-09-19 08:50] LABS: Hematocrit 40.1 % (36.0-46.0); Hemoglobin 13.5 g/dL (12.2-16.2); Mean Corpuscular Hemoglobin 32.1 pg (28.0-32.0); Mean Corpuscular Volume 95.2 fL (80.0-100.0); Nucleated Red Blood Cells % 0.0 %
--- NOTE | 2025-09-19 19:08 | DVHPNRES ---
Progress Note Date Seen: Sep 19, 2025 Resident Creating Document: LAYA BEARDEN RESIDENT Medical Necessity Reason Pt with a Central, PICC or Fol: No Subjective Review of Systems The patient was seen and examined at bedside, overnight events were reviewed. Patient still reports having shortness of breaths and cough. She was on room air, no other new complaints reported. Objective vital signs Vital Sign Date Time Temp Pulse Resp B/P (MAP) Pulse Ox O2 Delivery O2 Flow Rate FiO2 09/19/25 18:28 83 16 100 09/19/25 18:22 Room Air 0.0 09/19/25 18:22 21 09/19/25 18:18 97.9 09/19/25 17:00 152/77 (102) Total Intake and Output 09/18/25 09/18/25 09/19/25 15:00 23:00 07:00 Intake Total 50 ml 900 ml 800 ml Balance 50 ml 900 ml 800 ml medications Current Medications Medications Dose Ordered Sig/Wanda Route Start Time Stop Time Status Last Admin Dose Admin Ondansetron HCl 4 mg Q4HP PRN IV 09/17/25 23:30 Enoxaparin Sodium 40 mg DAILY SC 09/18/25 10:00 09/19/25 09:04 40 MG Acetaminophen 650 mg Q6HR PO 09/18/25 00:00 09/19/25 18:18 650 MG Albuterol 2.5 mg Q4HWA [facility] 09/18/25 06:00 09/19/25 18:22 2.5 MG Ipratropium [place] 0.5 mg Q4HWA [facility] 09/18/25 06:00 09/19/25 18:22 0.5 MG Famotidine 20 mg DAILY PO 09/18/25 10:00 09/19/25 09:03 20 MG Ceftriaxone Sodium/Dextrose 50 ml @ 50 mls/hr Q24H IV 09/18/25 13:00 09/19/25 14:08 50 MLS/HR Doxycycline Monohydrate 100 mg Q12HR PO 09/18/25 10:00 09/19/25 09:03 100 MG Prednisone 40 mg DAILY PO 09/18/25 10:00 09/19/25 09:36 40 MG Examination Pt is lying on bed General Appearance: Alert, Oriented X3, Cooperative, Mild distress HEENT: Atraumatic, Mucous membranes moist/pink Respiratory: Bilateral wheezing present, Normal air movement, No added sounds Cardiovascular: Regular rate, Normal S1, Normal S2, No murmurs Abdominal/ : Active bowel sounds, Soft, no distention, no tenderness Extremities: No edema, Normal pulses, No tenderness/swelling Skin: No Significant rash, except past surgical scars Neuro: Normal speech, sensorimotor deficits none Psych/Mental Status: Mental status NL, Mood NL Nurse was there as dumpcart driver during examination laboratory and microbiology Laboratory Tests 09/19/25 08:30 09/18/25 06:00 Test 09/18/25 06:00 Range/Units Serum Glucose 140 H 74-106 mg/dL Microbiology Date/Time Source Procedure Growth Status 09/18/25 16:45 Voided Urine Urine Culture - Preliminary Resulted 09/17/25 13:27 Blood Blood Culture - Preliminary NO GROWTH AFTER 48 HOURS OF INCUBATION. Resulted 09/17/25 07:08 Stool Stool Culture - Preliminary Resulted 09/17/25 07:08 Stool Shiga Toxin I & II - Final Resulted 09/17/25 07:08 Stool Clostridium difficile Toxin Assay - Final Resulted Labs and/or images reviewed: Labs reviewed by me, Image(s) reviewed by me Problem List/Assessment/Plan Problem List/Assessment/Plan Acute exacerbation of bronchial asthma Bronchitis Pneumonia due to Gram-positive or Gram-negative organism Sepsis on admission, probably due to pneumonia or UTI -albuterol and ipratropium -ceftriaxone plus doxycycline -prednisone Acute complicated UTI -IV ceftriaxone History of CKD stage 3 GI prophylaxis: Famotidine DVT prophylaxis: Lovenox Diet: Low-sodium Goals of care discussed with the patient for more than 27 minutes: Full code status Case discussed with Dr. Perkins , patient and RN Plan discussed with: Patient, Other (RN) Visit Coding STANDARD RES Billing Provider: LAYA BEARDEN Date of Service if different f: Sep 19, 2025 Common Visit Codes: [id number] INP/OBS CARE(LOW) LAYA BEARDEN Sep 19, 2025 19:08
[2025-09-20] VITALS (11 sets, daily range): BP systolic 146–167; BP diastolic 70–93; PULSE 65–95; RESP 16–18; TEMP 37.1; O2SAT 91–100
[2025-09-20] MEDS: ACETAMINOPHEN 325 MG TAB PO SCH (08:07)
--- NOTE | 2025-09-20 09:50 | ECG ---
[facility] Test Date: 2025-09-17 Test Time: 13:15:34 Pat Name: KAMILA VILLASENOR Department: Room: 0292 B Gender: F Cook Fishing Vessel: SUZI : 1950 Requested By: SUSAN SINCLAIR Order Number: [id number] Reading MD: Juan Alex Measurements Intervals [place] Rate: 89 P: 0 [place]: 0 QRS: 47 QRSD: 98 T: 54 QT: 392 QTc: 477 Interpretive Statements Atrial fibrillation Borderline T wave abnormalities Electronically Signed On 09-21-2025 17:19:07 PST by Juan Alex Please click the below link to view image of tracing.
[2025-09-20] MEDS ORDERED: DOXY-346 PO (11:22)
[2025-09-20] MEDS ORDERED: PRED20TA2 PO (11:22)
[2025-09-20] MEDS ORDERED: IPRATROPIUM BROM 0.5 MG/2.5ML INH SOL ONE (14:02)
[2025-09-20] MEDS ORDERED: ALBUTEROL SULF 2.5 MG/0.5ML(0.5%) NEB SOLN ONE (14:02)
--- NOTE | 2025-09-20 14:10 | DVHDSRES ---
Discharge Summary Date of Admission Resident Creating Document: LAYA BEARDEN Sep 17, 2025 at 23:23 Date of Discharge: Sep 20, 2025 Admitting Diagnosis Acute exacerbation of asthma Labs/Diagnostic Data: Laboratory Results Test 09/19/25 08:30 09/18/25 07:30 09/18/25 06:00 09/17/25 16:45 White Blood Count 7.0 10^3/uL (4.4-10.8) Red Blood Count 4.21 10^6/uL (4.0-5.20) Hemoglobin 13.5 g/dL (12.2-16.2) Hematocrit 40.1 % (36.0-46.0) Mean Corpuscular Volume 95.2 fL (80.0-100.0) Mean Corpuscular Hemoglobin 32.1 pg (28.0-32.0) Mean Corpuscular Hemoglobin Concent 33.7 g/dL (32.0-36.0) Red Cell Distribution Width 13.1 % (11.8-14.3) Platelet Count 176 10^3/uL (140-450) Mean Platelet Volume 8.7 fL (6.9-10.8) Neutrophils (%) (Auto) 66.6 % (37.0-80.0) Lymphocytes (%) (Auto) 23.3 % (10.0-50.0) Monocytes (%) (Auto) 9.0 % (0.0-12.0) Eosinophils (%) (Auto) 0.9 % (0.0-7.0) Basophils (%) (Auto) 0.2 % (0.0-2.0) Neutrophils # (Auto) 4.7 10 ^3/uL (1.6-8.6) Lymphocytes # (Auto) 1.6 10 ^3/uL (0.4-5.4) Monocytes # (Auto) 0.6 10 ^3/uL (0-1.3) Eosinophils # (Auto) 0.1 10 ^3/uL (0-0.8) Basophils # (Auto) 0 10 ^3/uL (0-0.2) Nucleated Red Blood Cells 0.0 % Lactic Acid Level 1.0 mmol/L (0.4-2.0) Influenza Type A Antigen Negative (Negative) Influenza Type B Antigen Negative (Negative) SARS-CoV-2 Antigen (Rapid) Negative (NEGATIVE) Sodium Level 141 mmol/L (136-145) Potassium Level 4.6 mmol/L (3.5-5.1) Chloride Level 108 mmol/L (98-107) Carbon Dioxide Level 24 mmol/L (20-31) Anion Gap 9 (5-15) Blood Urea Nitrogen 17 mg/dL (9-23) Creatinine 1.28 mg/dL (0.550-1.02) Glomerular Filtration Rate Calc 44 mL/min (>90) BUN/Creatinine Ratio 13.3 (10.0-20.0) Serum Glucose 140 mg/dL (74-106) Calcium Level 8.5 mg/dL (8.7-10.4) Total Bilirubin 0.6 mg/dL (0.2-1.0) Aspartate Amino Transferase (AST) 20 U/L (13-40) Alanine Aminotransferase (ALT) 23 U/L (7-40) Alkaline Phosphatase 53 U/L (46-116) Lactate Dehydrogenase 247 U/L (120-246) Total Protein 6.8 g/dL (5.7-8.2) Albumin 4.5 g/dL (3.2-4.8) Magnesium Level 2.0 mg/dL (1.6-2.6) Test 09/17/25 14:35 09/17/25 13:22 09/17/25 07:08 Urine Color Light-yellow (Yellow) Urine Clarity Clear (Clear) Urine pH 6.0 (5.0-9.0) Urine Specific [place] 1.020 (1.001-1.035) Urine Protein Negative (Negative) Urine Ketones Negative (Negative) Urine Blood Negative /uL (Negative) Urine Nitrite Negative (Negative) Urine Bilirubin Negative (Negative) Urine Urobilinogen Normal mg/dL (Negative) Urine Leukocyte Esterase 3+ /uL (Negative) Urine RBC 4 /hpf (0 - 4) Urine Microscopic WBC 5 /HPF (0-5) Urine Squamous Epithelial Cells Few /hpf (<5) Urine Bacteria Few /hpf (None Seen) Urine Mucus Few (None Seen) Urine Glucose Normal mg/dL (Normal) Troponin I High Sensitivity 9 ng/L (</=34) Stool for White Cells None seen Other Laboratory Tests 09/19/25 08:30 09/18/25 06:00 Brief Hx & Hospital Course: Randa Rick, 74-year-old female with past medical history of asthma, hypertension, depression, anxiety, hyperlipidemia, CKD stage 3, migraines presented to the ER with the complaints of shortness of breaths for 2 weeks, she reports the shortness of breath increased on exertion, relieved by breathing treatments. The patient was treated for acute exacerbation of asthma and probable pneumonia based on chest x-ray findings Send home with inhalers, antibiotics, prednisone and advised to follow up outpatient with PCP in 1 week. Patient was hemodynamically stable, feeling better, wheezing improved and verbalized understanding of the treatment plan. Conditions treated during this hospitalization: Acute exacerbation of bronchial asthma Bronchitis Pneumonia due to Gram-positive or Gram-negative organism Sepsis on admission, probably due to pneumonia or UTI Acute complicated UTI History of CKD stage [address] Perkins. Operations or Procedures PATIENT: RANDA RICK ACCT: [id number] UNIT: [id number] : 1950 LOC: ER ROOM / BED: / AGE / SEX: 74 / F ADM STATUS: REG ER SERVICE 1305 ORDERING PHYSICIAN: SUSAN SINCLAIR MD PROCEDURE(s): CXR2 - CHEST TWO VIEWS ROUTINE REASON: sob ORDER NUMBER(s): [id number], ACCESSION NUMBER(s): [id number] CHEST RADIOGRAPH INDICATION: sob TECHNIQUE: Frontal and lateral view of the chest was obtained COMPARISON: CT CHEST WO on DOS: 07/07/25, XR CHEST 2 VIEW on DOS: 06/23/25, CHEST PORTABLE on DOS: 01/03/22, CXRP on DOS: 01/03/22, CHEST PORTABLE on DOS: 07/26/21 FINDINGS: Lines and Tubes: None Lungs: Right perihilar opacity may reflect atelectasis or mild pneumonia. Pleura: No effusion. No pneumothorax. Cardiomediastinal contours: Unremarkable Bones: Unremarkable IMPRESSION: 1. Right perihilar opacity may reflect atelectasis or mild pneumonia. Condition at Discharge: Stable Final Diagnosis/Problems List Acute exacerbation of bronchial asthma Bronchitis Pneumonia due to Gram-positive or Gram-negative organism Sepsis on admission, probably due to pneumonia or UTI Acute complicated UTI History of CKD stage 3 Acute exacerbation of asthma Discharge Disposition: Home Discharge Instruct/Medications Diet: Cardiac 2g Na,low cholest Activity: No Restrictions, As Tolerated Follow Up/Referral: outpatient with PCP Medications: As per EMR Scheduled Azithromycin (Azithromycin), 250 MG PO DAILY Doxycycline (Monohydrate) (Doxycycline), 100 MG PO BID Prednisone (Prednisone), 20 MG PO BID Prednisone (Prednisone), 40 MG PO DAILY Scheduled PRN Albuterol Sulfate (Ventolin Mdi), 90 MCG IN Q6HP PRN Discharge Statement: "Patient was advised to return to the ER or call 911 if any headaches, dizziness, shortness of breath, chest pain, abdominal pain, bleeding, fevers, or worsening of medical condition. Patient was counseled about treatment plan, medications, possible side effects, patientverbalized understanding. All questions were answered to the best of my ability. This discharge took greater then 30 minutes in planning, reviewing documentation, counseling the patient, and discussing with other team members." ASSESSMENT ASSESSMENT Assessment Acute exacerbation of asthma Visit Coding STANDARD RES Billing Provider: LAYA BEARDEN Date of Service if different f: Sep 20, 2025 Common Visit Codes: [id number] INP/OBS CARE(HIGH) LAYA BEARDEN Sep 20, 2025 14:10
== END 2025-09-20 13:05 | disposition home or self-care (01) | DRG 871 ==
LOC: ER 12:57 → OVERFLOW 23:23 → WEST WING 09-19 12:18
PROVIDERS: ADMIT Internal Medicine Geriatric Medicine; ATTEND Internal Medicine Geriatric Medicine
DX: A41.9 Sepsis, unspecified organism (principal); J15.69 Pneumonia due to other Gram-negative bacteria; J15.9 Unspecified bacterial pneumonia; E87.20 Acidosis, unspecified; A04.9 Bacterial intestinal infection, unspecified; N39.0 Urinary tract infection, site not specified; J45.901 Unspecified asthma with (acute) exacerbation; E66.9 Obesity, unspecified; F32.A Depression, unspecified; I12.9 Hypertensive chronic kidney disease with stage 1 through stage 4 chronic kidney disease, or unspecified chronic kidney disease; N18.30 Chronic kidney disease, stage 3 unspecified; Z20.822 Contact with and (suspected) exposure to COVID-19; Z68.35 Body mass index [BMI] 35.0-35.9, adult; Z96.612 Presence of left artificial shoulder joint; F41.9 Anxiety disorder, unspecified; Z96.611 Presence of right artificial shoulder joint; A08.4 Viral intestinal infection, unspecified; E87.6 Hypokalemia; Z90.49 Acquired absence of other specified parts of digestive tract; Z98.51 Tubal ligation status; Z88.5 Allergy status to narcotic agent; Z88.8 Allergy status to other drugs, medicaments and biological substances; Z91.041 Radiographic dye allergy status; Z79.899 Other long term (current) drug therapy
CPT/HCPCS: 36415; 71046; 80053; 81001; 83605; 83615; 83735; 84484; 85025; 85048; 87040; 87045; 87086; 87426; 87427; 87493; 87804; 93005; 94640; 96365; G0378